=== PATIENT | female | born 1995 | race Caucasian/White ===

== ENCOUNTER 2024-11-19 05:06 | Emergency (ER) | payer OTHER ==
[~2024-11-19] VITALS: Ht 149.9 cm; Wt 76.4 kg
[2024-11-19] MEDS: ONDANSETRON 4MG 2ML VIAL IV ONE (10:52)
[2024-11-19] MEDS: NS (Normal Saline) 0.9% 1,000 ML IV ONE (10:54)
[2024-11-19 10:58] LABS: BASO # 0.0 10^3/uL (0.0-0.2); BASO % 0.3 % (0.0-1.0); EOS # 0.0 10^3/uL (0.0-0.5); EOS % 0.3 % (0.0-3.0); LYMPH # 2.6 10^3/uL (1.5-5.0); LYMPH % 23.9 % (24.0-44.0); MONO # 0.6 10^3/uL (0.0-0.8); MONO % 5.7 % (2.0-8.0); NEUTROPHILS # 7.7 10^3/uL (1.5-8.5); NEUTROPHILS % 69.3 % (36.0-66.0); PLATELET COUNT, AUTOMATED 313 10^3/uL (150-450)
[2024-11-19 11:42] LABS: ALT/SGPT 30 U/L (7.0-40); AST/SGOT 30 U/L (<34)
[2024-11-19 12:01] LABS: HCG, SERUM QUALITATIVE NEGATIVE (NEGATIVE)
[2024-11-19 12:26] LABS: KETONE, URINE AUTO RFX NEGATIVE (NEGATIVE); LEUKOCYTE ESTERASE UR AUTO RFX NEGATIVE (NEGATIVE); MUCUS, URINE RFX SMALL (NEGATIVE); NITRITE, URINE AUTO RFX NEGATIVE (NEGATIVE); RBC, URINE AUTO RFX 0 /HPF (0-3); SQUAM EPITHELIAL CELL UR AURFX 1 /HPF (0-6); WBC, URINE AUTO RFX 0 /HPF (0-3)
[2024-11-19] MEDS ORDERED: ISOVUE-370 76% 100 ML VIAL As Ordered ONE (12:33)
[2024-11-19] MEDS: KETOROLAC 30 MG/ML 1 ML VIAL IV ONE (12:55)
[2024-11-19] MEDS: ACETAMINOPHEN *IV* 1,000 MG in IV 1 EA IV ONE (13:41)
[2024-11-19] MEDS ORDERED: ONDA-282 PO (15:00)
[2024-11-19 15:11] VITALS: BP 129/67; TEMP 96.9; O2SAT 100
== END 2024-11-19 15:15 | disposition home or self-care (01) ==
LOC: M ED 05:06
DX: M54.50 Low back pain, unspecified (principal); R11.10 Vomiting, unspecified; Z88.0 Allergy status to penicillin; Z88.8 Allergy status to other drugs, medicaments and biological substances; Z91.040 Latex allergy status; Z91.048 Other nonmedicinal substance allergy status; Z79.83 Long term (current) use of bisphosphonates
CPT/HCPCS: 74177; 80047; 80076; 81001; 83690; 84703; 85025; 96361; 96365; 96366; 96375; 99284; J0131; J1885; J2405; Q9967

== ENCOUNTER 2025-01-26 12:50 | Emergency (ER) | payer OTHER ==
[~2025-01-26 12:50] MED LIST: ONDA-282 PO
[2025-01-26 13:53] LABS: BASO # 0.0 10^3/uL (0.0-0.2); BASO % 0.3 % (0.0-1.0); EOS # 0.1 10^3/uL (0.0-0.5); EOS % 0.6 % (0.0-3.0); LYMPH # 2.8 10^3/uL (1.5-5.0); LYMPH % 26.4 % (24.0-44.0); MONO # 0.8 10^3/uL (0.0-0.8); MONO % 7.3 % (2.0-8.0); NEUTROPHILS # 6.9 10^3/uL (1.5-8.5); NEUTROPHILS % 65.0 % (36.0-66.0); PLATELET COUNT, AUTOMATED 345 10^3/uL (150-450)
[2025-01-26 14:04] LABS: INR 0.94
[2025-01-26 14:23] LABS: HCG, SERUM QUALITATIVE NEGATIVE (NEGATIVE)
[2025-01-26 14:24] LABS: CPK CREATINE PHOSPHOKINASE 101 U/L (34-145)
[2025-01-26 14:25] LABS: ALT/SGPT 25 U/L (7.0-40); AST/SGOT 17 U/L (<34); CALCIUM LEVEL 9.4 MG/DL (8.5-10.1); CARBON DIOXIDE LEVEL 28 MMOL/L (20-31); CHLORIDE LEVEL 102 MMOL/L (98-107); CK-MB VALUE MASS 1.3 NG/ML (<3.6); CREATININE FOR GFR 0.58 MG/DL (0.55-1.30); FREE T4 1.40 NG/DL (0.89-1.76); GLOMERULAR FILTRATION RATE > 90.0 (>60); MB/CK RELATIVE INDEX 1.28 (< OR =4); POTASSIUM SERUM 3.8 MMOL/L (3.5-5.1); SODIUM LEVEL 141 MMOL/L (136-145)
[2025-01-26 19:33] LABS: CK-MB VALUE MASS 1.1 NG/ML (<3.6)
[2025-01-26 19:37] LABS: CPK CREATINE PHOSPHOKINASE 92 U/L (34-145); MB/CK RELATIVE INDEX 1.19 (< OR =4)
[2025-01-26] MEDS: NITROGLYCERIN 0.4 MG SUBL TABLET SL PRN (20:02)
[2025-01-26] MEDS: ACETAMINOPHEN 500 MG TAB PO ONE (20:02)
[2025-01-26 20:15] VITALS: BP 102/68
[2025-01-26 20:19] LABS: D-DIMER QUANT 0.33 ug/mL (<0.5)
[2025-01-26 21:15] VITALS: BP 106/68; TEMP 97.5; O2SAT 98
== END 2025-01-26 21:41 | disposition home or self-care (01) ==
LOC: M ED 12:50
DX: R07.9 Chest pain, unspecified (principal); I45.10 Unspecified right bundle-branch block; R73.03 Prediabetes; R51.9 Headache, unspecified; F17.290 Nicotine dependence, other tobacco product, uncomplicated; Z98.51 Tubal ligation status; Z88.0 Allergy status to penicillin; Z88.8 Allergy status to other drugs, medicaments and biological substances; Z91.040 Latex allergy status; Z91.048 Other nonmedicinal substance allergy status

== ENCOUNTER 2025-04-08 12:33 | Emergency (ER) | payer OTHER ==
[~2025-04-08] VITALS: Ht 149.9 cm; Wt 79.3 kg
[2025-04-08 14:21] LABS: BASO # 0.0 10^3/uL (0.0-0.2); BASO % 0.4 % (0.0-1.0); EOS # 0.1 10^3/uL (0.0-0.5); EOS % 0.5 % (0.0-3.0); LYMPH # 3.3 10^3/uL (1.5-5.0); LYMPH % 30.7 % (24.0-44.0); MONO # 0.9 10^3/uL (0.0-0.8); MONO % 7.9 % (2.0-8.0); NEUTROPHILS # 6.4 10^3/uL (1.5-8.5); NEUTROPHILS % 60.1 % (36.0-66.0); PLATELET COUNT, AUTOMATED 353 10^3/uL (150-450)
[2025-04-08 14:50] LABS: ALT/SGPT 24 U/L (7.0-40); AST/SGOT 14 U/L (<34); CALCIUM LEVEL 9.2 MG/DL (8.5-10.1); CARBON DIOXIDE LEVEL 26 MMOL/L (20-31); CHLORIDE LEVEL 104 MMOL/L (98-107); CREATININE FOR GFR 0.57 MG/DL (0.55-1.30); GLOMERULAR FILTRATION RATE > 90.0 (>60); POTASSIUM SERUM 4.2 MMOL/L (3.5-5.1); SODIUM LEVEL 139 MMOL/L (136-145)
[2025-04-08 15:00] LABS: HCG, SERUM QUALITATIVE NEGATIVE (NEGATIVE)
[2025-04-08] MEDS ORDERED: NORG75TA PO (16:03)
[2025-04-08] MEDS ORDERED: HOME MED LIST COMPLETE! XX SCH (16:05)
[2025-04-08 17:22] LABS: APPEARANCE, URINE CLEAR (CLEAR); BACTERIA, URINE AUTO NEGATIVE (NEGATIVE); BILIRUBIN, URINE AUTO NEGATIVE (NEGATIVE); BLOOD, URINE BLOOD NEGATIVE (NEGATIVE); GLUCOSE, URINE (UA) AUTO NEGATIVE (NEGATIVE); KETONE, URINE AUTO NEGATIVE (NEGATIVE); LEUKOCYTE ESTERASE, URINE AUTO NEGATIVE (NEGATIVE); MUCUS, URINE SMALL (NEGATIVE); NITRITE, URINE AUTO NEGATIVE (NEGATIVE); PROTEIN, URINE AUTO NEGATIVE (NEGATIVE); RBC, URINE AUTO 5 /HPF (0-3); SPECIFIC GRAVITY URINE AUTO 1.023 (1.002-1.035); SQUAMOUS EPITHELIAL CELL UR AU 2 /HPF (0-6); UROBILINOGEN, URINE AUTO 0.2 mg/dL (0.0-2.0); WBC, URINE AUTO 0 /HPF (0-3)
[2025-04-08] MEDS: MAALOX 30 ML SUSP *UDC PO ONE (18:05)
[2025-04-08] MEDS: ONDANSETRON 4MG/2ML VIAL IV ONE (18:05)
[2025-04-08] MEDS: NS (Normal Saline) 0.9% 1,000 ML in IV 1 EA IV SCH (18:06)
[2025-04-08] MEDS: FAMOTIDINE 20 MG/2 ML VIAL IVP ONE (18:06)
[2025-04-08] MEDS ORDERED: ISOVUE-370 76% 100 ML VIAL As Ordered ONE (18:22)
[2025-04-08] MEDS: ACETAMINOPHEN *IV* 1,000 MG in IV 1 EA IV ONE (19:03)
[2025-04-08] MEDS ORDERED: MORPHINE 4 MG/ML 1 ML VIAL IV PRN (20:15)
[2025-04-08] MEDS: SUCRALFATE SUSP 1GM/10ML UD PO ONE (20:27)
[2025-04-08 20:34] LABS: BASO # 0.0 10^3/uL (0.0-0.2); BASO % 0.3 % (0.0-1.0); EOS # 0.1 10^3/uL (0.0-0.5); EOS % 0.5 % (0.0-3.0); LYMPH # 4.1 10^3/uL (1.5-5.0); LYMPH % 34.1 % (24.0-44.0); MONO # 0.7 10^3/uL (0.0-0.8); MONO % 5.9 % (2.0-8.0); NEUTROPHILS # 7.0 10^3/uL (1.5-8.5); NEUTROPHILS % 58.9 % (36.0-66.0); PLATELET COUNT, AUTOMATED 292 10^3/uL (150-450)
[2025-04-08] MEDS ORDERED: SUCR1ORA PO (21:23)
[2025-04-08] MEDS ORDERED: PEPC1TAB5 PO (21:23)
[2025-04-08 21:30] VITALS: BP 105/65; TEMP 98
[2025-04-08 21:34] VITALS: O2SAT 99
[2025-04-08] MEDS: MORPHINE 4 MG/ML 1 ML VIAL IV ONE (21:34)
== END 2025-04-08 21:55 | disposition home or self-care (01) ==
LOC: M ED 12:33
DX: R10.9 Unspecified abdominal pain (principal); K25.9 Gastric ulcer, unspecified as acute or chronic, without hemorrhage or perforation; Z88.0 Allergy status to penicillin; Z91.09 Other allergy status, other than to drugs and biological substances; Z91.040 Latex allergy status; Z79.899 Other long term (current) drug therapy
CPT/HCPCS: 74174; 80048; 80076; 81001; 83690; 84703; 85025; 86850; 86900; 86901; 96361; 96374; 96375; 99285; J0134; J1308; J2405; Q9967